=== PATIENT | male | born 1995 | race Caucasian/White ===

== ENCOUNTER 2017-01-20 19:22 | Emergency (ER) | payer MEDICAID ==
[~2017-01-20] VITALS: Ht 182.9 cm; Wt 104.3 kg
[2017-01-20 19:22] VITALS: BP_SYST 145
[2017-01-20] MEDS ORDERED: ALBUTEROL SULFATE 0.083% 2.5 MG/3 ML VIAL.NEB INH ONE ×2 (21:46→23:00)
[2017-01-20] MEDS ORDERED: IPRATROPIUM BROM 0.5 MG/2.5 ML VIAL.NEB (ATROVENT) INH ONE ×2 (21:46→23:00)
[2017-01-20] MEDS ORDERED: PREDNISONE 20 MG TABLET PO ONE (22:00)
[2017-01-20] MEDS ORDERED: ALBUTEROL SULFATE 0.083% 2.5 MG/3 ML VIAL.NEB IH ONE (22:00)
[2017-01-20] MEDS ORDERED: IPRATROPIUM BROM 0.5 MG/2.5 ML VIAL.NEB (ATROVENT) IH ONE (22:00)
[2017-01-21 00:10] VITALS: BP_SYST 142
== END 2017-01-21 00:10 | disposition home or self-care (01) ==
LOC: SED 19:22
DX: J45.901 Unspecified asthma with (acute) exacerbation (principal); Z91.14 Patient's other noncompliance with medication regimen
CPT/HCPCS: 94640; 99285; J7512